=== PATIENT | male | born 1945 | race Caucasian/White ===

== ENCOUNTER 2017-09-16 19:25 | Emergency (ER) | payer MEDICARE, OTHER ==
[~2017-09-16] VITALS: Ht 175.3 cm; Wt 114.8 kg
[~2017-09-16 19:25] MED LIST: AMLODIPINE10 MG PO; ASPIRIN EC325 MG PO; FENTANYL50 MCG/HR TD; FLUTICASONE50 MCG; HYDROCODONE/ACE1 TAB PO; LANTUS100 MG/ML SC; LASIX 40 MG TAB40 MG PO; LIPITOR40 M1 PO; LISINOPRIL10 MG PO; LYRICA100 MG PO; METFORMIN500 MG PO; METOPROLOL SUCC50 MG PO; MITIGARE0.6 MG PO; NOVOLO1 SC; PANTOPRAZOLE SO40 MG PO; TENORMIN PO; ULTRAM50 M1 PO; VOTRIENT200 MG PO
[2017-09-16 21:16] LABS: URINE BILIRUBIN - DIPSTICK NEGATIVE (NEGATIVE); URINE BLOOD DIPSTICK NEGATIVE (NEGATIVE); URINE COLOR YELLOW; URINE GLUCOSE - DIPSTICK NEGATIVE (NEGATIVE); URINE KETONE NEGATIVE (NEGATIVE); URINE LEUK ESTERASE NEGATIVE (NEGATIVE); URINE NITRITE - DIPSTICK NEGATIVE (Negative); URINE PH 5.5 (4.5-8.0); URINE PROTEIN - DIPSTICK 100 mg/dL (NEG-TRACE); URINE UROBILINOGEN - DIPSTICK 0.2 E.U./dL (0.2)
[2017-09-16 21:33] LABS: URINE CLARITY CLEAR
[2017-09-16 21:42] LABS: URINE MUCUS FEW hpf (NONE-FEW); URINE SQUAMOUS EPITHELIAL CELL FEW EPI/hpf (0-FEW)
[2017-09-16 21:42] LABS: INFLUENZA A NONE DETECTED (NONE DETECT); INFLUENZA B NONE DETECTED (NONE DETECT)
[2017-09-16] MEDS ORDERED: ORPHENADRINE100 MG PO (21:57)
[2017-09-16 22:14] VITALS: BP 166/71
== END 2017-09-16 22:14 | disposition home or self-care (01) ==
LOC: ED 19:25
PROVIDERS: Emergency Medicine
DX: R50.9 Fever, unspecified (principal); M54.2 Cervicalgia; M25.512 Pain in left shoulder; M25.511 Pain in right shoulder; S13.4XXA Sprain of ligaments of cervical spine, initial encounter; W18.09XA Striking against other object with subsequent fall, initial encounter; Y92.009 Unspecified place in unspecified non-institutional (private) residence as the place of occurrence of the external cause; I10 Essential (primary) hypertension; I25.2 Old myocardial infarction; E11.9 Type 2 diabetes mellitus without complications; Z79.4 Long term (current) use of insulin

== ENCOUNTER 2018-07-26 22:14 | Emergency (ER) | payer MEDICARE, OTHER ==
[~2018-07-26] VITALS: Ht 180.3 cm; Wt 113.6 kg
[~2018-07-26 22:14] MED LIST changes: -ASPIRIN 8181 MG PO; -CEPHALEXIN500 M1 PO
[2018-07-27 01:16] LABS: CREATININE 2.3 mg/dL (0.7-1.3)
[2018-07-27 01:21] LABS: POTASSIUM 5.4 mmol/l (3.5-5.1)
[2018-07-27 01:45] VITALS: BP 152/71
== END 2018-07-27 02:00 | disposition home or self-care (01) ==
LOC: ED 22:14
PROVIDERS: Family Medicine
DX: E87.5 Hyperkalemia (principal); T44.5X5A Adverse effect of predominantly beta-adrenoreceptor agonists, initial encounter; N17.9 Acute kidney failure, unspecified; I13.0 Hypertensive heart and chronic kidney disease with heart failure and stage 1 through stage 4 chronic kidney disease, or unspecified chronic kidney disease; E11.22 Type 2 diabetes mellitus with diabetic chronic kidney disease; N18.9 Chronic kidney disease, unspecified; I50.9 Heart failure, unspecified; E11.40 Type 2 diabetes mellitus with diabetic neuropathy, unspecified; I25.2 Old myocardial infarction; G47.30 Sleep apnea, unspecified; Z95.1 Presence of aortocoronary bypass graft; E11.65 Type 2 diabetes mellitus with hyperglycemia; Z79.4 Long term (current) use of insulin; R42 Dizziness and giddiness; I10 Essential (primary) hypertension

== ENCOUNTER → 2018-07-26 | Outpatient (REF) | payer MEDICARE, OTHER ==
[~2018-07-26] MED LIST changes: +ANTI-DIARRHE2 M1 PO; +ASPIRIN 8181 MG PO; +CEPHALEXIN500 M1 PO; +FLUTICASONE0.05 % EX; +HYDRALAZINE25 MG PO; -LANTUS100 MG/ML SC; +LANTUS100 UNIT/M SC; +LEVOTHYROXIN50 MCG PO; +MAXITROL0.1 % OP; +NITROSTAT0.4 MG SL; +ORPHENADRINE100 MG PO; +PROTOPIC0.1 % EX; +STOOL SOFTE1 PO; +TYLENOL500 MG PO
[2018-07-26 12:25] LABS: HEMATOCRIT 43.3 % (39.0-50.0); HEMOGLOBIN 13.8 g/dl (14.0-18.0); MEAN CELL VOLUME 91.5 fL CALC (80.0-100.0); MEAN CORPUSCULAR HGB 29.2 pG CALC (26.0-32.0); MEAN CORPUSCULAR HGB CONC 31.9 g/L CALC (32.0-36.0); RED BLOOD COUNT 4.73 mill/uL (4.70-6.10); RED CELL DISTRI WIDTH 17.8 % (11.5-15.5)
[2018-07-26 12:50] LABS: ALBUMIN 4.3 g/dL (3.2-5.0); BILIRUBIN, TOTAL 0.6 mg/dL (0.0-1.4); CREATININE 2.5 mg/dL (0.7-1.3); TOTAL PROTEIN 7.6 g/dL (6.3-8.2)
[2018-07-26 13:00] LABS: POTASSIUM 5.6 mmol/l (3.5-5.1)
== END | disposition home or self-care (01) ==
LOC: MRI 11:55
PROVIDERS: ATTEND Nurse Practitioner
DX: R42 Dizziness and giddiness (principal); I10 Essential (primary) hypertension

== ENCOUNTER → 2018-08-06 | Outpatient (REF) | payer MEDICARE, OTHER ==
[~2018-08-06] MED LIST changes: +ASPIRIN 8181 MG PO; +CEPHALEXIN500 M1 PO
[2018-08-06 08:39] LABS: CREATININE 2.2 mg/dL (0.7-1.3); POTASSIUM 4.8 mmol/l (3.5-5.1)
== END | disposition home or self-care (01) ==
LOC: LAB 07:34
PROVIDERS: ATTEND Nurse Practitioner
DX: E86.0 Dehydration (principal)

== ENCOUNTER 2018-09-06 09:08 | Emergency (ER) | payer MEDICARE, OTHER ==
[~2018-09-06] VITALS: Ht 180.3 cm; Wt 100.0 kg
[~2018-09-06 09:08] MED LIST changes: -ASPIRIN 8181 MG PO; -CEPHALEXIN500 M1 PO
[2018-09-06 09:51] LABS: HEMATOCRIT 44.1 % (39.0-50.0); HEMOGLOBIN 13.9 g/dl (14.0-18.0); IMMATURE GRANULOCYTES 0.3 % (0.0-5.0); MEAN CELL VOLUME 92.5 fL CALC (80.0-100.0); MEAN CORPUSCULAR HGB 29.1 pG CALC (26.0-32.0); MEAN CORPUSCULAR HGB CONC 31.5 g/L CALC (32.0-36.0); NEUT# 3.43 thou/uL (1.82-7.42); RED BLOOD COUNT 4.77 mill/uL (4.70-6.10); RED CELL DISTRI WIDTH 18.5 % (11.5-15.5)
[2018-09-06] MEDS ORDERED: ASPIRIN 8181 MG PO (10:00)
[2018-09-06 10:09] LABS: ALBUMIN 4.5 g/dL (3.2-5.0); BILIRUBIN, TOTAL 0.8 mg/dL (0.0-1.4); CREATININE 2.2 mg/dL (0.7-1.3); POTASSIUM 4.9 mmol/l (3.5-5.1); TOTAL PROTEIN 7.8 g/dL (6.3-8.2)
[2018-09-06 12:17] LABS: URINE BILIRUBIN - DIPSTICK NEGATIVE (NEGATIVE); URINE BLOOD DIPSTICK NEGATIVE (NEGATIVE); URINE COLOR YELLOW; URINE GLUCOSE - DIPSTICK NEGATIVE (NEGATIVE); URINE KETONE NEGATIVE (NEGATIVE); URINE LEUK ESTERASE MODERATE (NEGATIVE); URINE NITRITE - DIPSTICK NEGATIVE (Negative); URINE PROTEIN - DIPSTICK TRACE mg/dL (NEG-TRACE); URINE SPECIFIC GRAVITY 1.015; URINE UROBILINOGEN - DIPSTICK 0.2 E.U./dL (0.2)
[2018-09-06 12:50] LABS: URINE BACTERIA RARE hpf; URINE SQUAMOUS EPITHELIAL CELL FEW EPI/hpf (0-FEW); URINE WBC 20-50 WBC/hpf (0-5)
[2018-09-06] MEDS ORDERED: CEPHALEXIN500 M1 PO (13:09)
[2018-09-06 13:18] VITALS: BP 171/72
== END 2018-09-06 13:24 | disposition home or self-care (01) ==
LOC: ED 09:08
PROVIDERS: Family Medicine
DX: R10.12 Left upper quadrant pain (principal); N39.0 Urinary tract infection, site not specified; E11.40 Type 2 diabetes mellitus with diabetic neuropathy, unspecified; I11.0 Hypertensive heart disease with heart failure; I50.9 Heart failure, unspecified; C34.90 Malignant neoplasm of unspecified part of unspecified bronchus or lung; I25.2 Old myocardial infarction; Z79.4 Long term (current) use of insulin

== ENCOUNTER 2019-06-28 | Emergency (ER) | payer MEDICARE, OTHER ==
[~2019-06-28] MED LIST changes: +ASPIRIN 8181 MG PO; +CEPHALEXIN500 M1 PO
[2019-06-28 11:19] LABS: IMMATURE GRANULOCYTES 0.5 % (0.0-5.0); MEAN CELL VOLUME 90.5 fL CALC (80.0-100.0); MEAN CORPUSCULAR HGB 28.3 pG CALC (26.0-32.0); MEAN CORPUSCULAR HGB CONC 31.3 g/L CALC (32.0-36.0); NEUT# 2.1 thou/uL (1.82-7.42); RED BLOOD COUNT 4.2 mill/uL (4.70-6.10); RED CELL DISTRI WIDTH 18.6 % (11.5-15.5)
[2019-06-28 11:23] LABS: HEMOGLOBIN 11.9 g/dl (14.0-18.0)
[2019-06-28 11:33] LABS: BILIRUBIN, TOTAL 0.6 mg/dL (0.0-1.4); CREATININE 1.5 mg/dL (0.7-1.3); POTASSIUM 4.1 mmol/l (3.5-5.1); TOTAL PROTEIN 6.6 g/dL (6.3-8.2)
[2019-06-28 11:51] LABS: ALBUMIN 3.5 g/dL (3.2-5.0)
[2019-06-28] MEDS ORDERED: AMOXICILLIN875 MG PO (12:08)
== END 2019-06-28 13:07 | disposition home or self-care (01) ==
PROVIDERS: Emergency Medicine
DX: L03.115 Cellulitis of right lower limb (principal); S81.801A Unspecified open wound, right lower leg, initial encounter; S91.104A Unspecified open wound of right lesser toe(s) without damage to nail, initial encounter; E11.65 Type 2 diabetes mellitus with hyperglycemia; R60.0 Localized edema; I11.0 Hypertensive heart disease with heart failure; I50.9 Heart failure, unspecified; E11.40 Type 2 diabetes mellitus with diabetic neuropathy, unspecified; I25.2 Old myocardial infarction; Z79.4 Long term (current) use of insulin; Z85.118 Personal history of other malignant neoplasm of bronchus and lung; Z95.1 Presence of aortocoronary bypass graft

== ENCOUNTER 2019-08-02 | Inpatient (IN) | payer MEDICARE ==
[2019-08-01 23:39] LABS: HEMATOCRIT 35.6 % (39.0-50.0); HEMOGLOBIN 11.2 g/dl (14.0-18.0); IMMATURE GRANULOCYTES 0.4 % (0.0-5.0); MEAN CELL VOLUME 90.4 fL CALC (80.0-100.0); MEAN CORPUSCULAR HGB 28.4 pG CALC (26.0-32.0); MEAN CORPUSCULAR HGB CONC 31.5 g/L CALC (32.0-36.0); NEUT# 4.13 thou/uL (1.82-7.42); RED BLOOD COUNT 3.94 mill/uL (4.70-6.10); RED CELL DISTRI WIDTH 20.6 % (11.5-15.5)
[2019-08-02] VITALS (16 sets, daily range): BP systolic 143–195; BP diastolic 58–87
[~2019-08-02] MED LIST changes: +AMOXICILLIN875 MG PO
[2019-08-02 00:04] LABS: BILIRUBIN, TOTAL 0.7 mg/dL (0.0-1.4); CREATININE 1.8 mg/dL (0.7-1.3); POTASSIUM 4.1 mmol/l (3.5-5.1); TOTAL PROTEIN 6.1 g/dL (6.3-8.2)
[2019-08-02] MEDS ORDERED: ASPIRIN81 MG PO (03:07)
[2019-08-02] MEDS ORDERED: NORVASC10 M1 PO (03:07)
[2019-08-02] MEDS ORDERED: LIPITOR40 M1 PO (03:08)
[2019-08-02] MEDS ORDERED: CEPHALEXIN500 MG PO (03:09)
[2019-08-02] MEDS ORDERED: MITIGARE0.6 MG PO (03:11)
[2019-08-02] MEDS ORDERED: CYCLOBENZAPR5 MG PO (03:12)
[2019-08-02] MEDS ORDERED: FLUTICASONE0.05 % EX (03:13)
[2019-08-02] MEDS ORDERED: FUROSEMIDE20 MG PO (03:13)
[2019-08-02] MEDS ORDERED: HYDROCO/APAP1 TA9 PO (03:15)
[2019-08-02] MEDS ORDERED: HYDROCODONE BIT1 TA7 PO (03:15)
[2019-08-02] MEDS ORDERED: FIASP FLEX100 UNIT/M SC (03:16)
[2019-08-02] MEDS ORDERED: BASAGLAR K100 UNIT/M SC (03:17)
[2019-08-02] MEDS ORDERED: LIDOCAINE 5%5 % TOP (03:18)
[2019-08-02] MEDS ORDERED: ANTI-DIARRHE2 M1 PO (03:19)
[2019-08-02] MEDS ORDERED: LEVOTHYROXIN125 MCG PO (03:19)
[2019-08-02] MEDS ORDERED: NEO/POLY/DEX0.13 OD (03:22)
[2019-08-02] MEDS ORDERED: ORPHENADRINE100 MG PO ×2 (03:23→03:37)
[2019-08-02] MEDS ORDERED: NITROGLYCERIN0.4 MG SL (03:23)
[2019-08-02] MEDS ORDERED: PROTONIX40 M2 PO (03:29)
[2019-08-02] MEDS ORDERED: PAZOPANIB PO (03:30)
[2019-08-02] MEDS ORDERED: PREGABALIN50 MG PO (03:31)
[2019-08-02] MEDS ORDERED: LYRICA50 MG PO (03:32)
[2019-08-02] MEDS ORDERED: PROTOPIC0.1 % TOP (03:33)
[2019-08-02] MEDS ORDERED: TYLENOL500 MG PO (03:34)
[2019-08-02] MEDS ORDERED: LISINOPRIL10 MG PO (03:36)
[2019-08-02] MEDS ORDERED: METOPROLOL SUCC50 MG PO (03:37)
[2019-08-02 04:53] LABS: HEMATOCRIT 37.1 % (39.0-50.0); HEMOGLOBIN 11.6 g/dl (14.0-18.0); IMMATURE GRANULOCYTES 0.2 % (0.0-5.0); MEAN CELL VOLUME 91.4 fL CALC (80.0-100.0); MEAN CORPUSCULAR HGB 28.6 pG CALC (26.0-32.0); MEAN CORPUSCULAR HGB CONC 31.3 g/L CALC (32.0-36.0); NEUT# 4.07 thou/uL (1.82-7.42); RED BLOOD COUNT 4.06 mill/uL (4.70-6.10); RED CELL DISTRI WIDTH 20.6 % (11.5-15.5)
[2019-08-02 05:07] LABS: CREATININE 1.7 mg/dL (0.7-1.3); POTASSIUM 4.1 mmol/l (3.5-5.1)
[2019-08-02 07:30] LABS: URINE BILIRUBIN - DIPSTICK NEGATIVE (NEGATIVE); URINE BLOOD DIPSTICK TRACE-INTACT (NEGATIVE); URINE COLOR YELLOW; URINE GLUCOSE - DIPSTICK NEGATIVE (NEGATIVE); URINE KETONE NEGATIVE (NEGATIVE); URINE NITRITE - DIPSTICK NEGATIVE (Negative); URINE PH 5.5 (4.5-8.0); URINE PROTEIN - DIPSTICK 100 mg/dL (NEG-TRACE); URINE UROBILINOGEN - DIPSTICK 0.2 E.U./dL (0.2)
[2019-08-02 07:32] LABS: URINE LEUK ESTERASE SMALL (NEGATIVE)
[2019-08-02 08:05] LABS: URINE RBC 0-2 RBC/hpf (0-5)
[2019-08-02 08:06] LABS: URINE BACTERIA FEW hpf
[2019-08-02 10:32] LABS: ACT PARTIAL THROMBO TIME 29.9 SECONDS (20.0-32.5); PROTHROMBIN TIME 10.5 SECONDS (9.0-12.5)
== END 2019-08-02 15:08 | disposition short-term general hospital (02) | DRG 292 ==
PROVIDERS: Emergency Medicine; Nurse Practitioner Family; ADMIT Internal Medicine
DX: I13.0 Hypertensive heart and chronic kidney disease with heart failure and stage 1 through stage 4 chronic kidney disease, or unspecified chronic kidney disease (principal); C34.90 Malignant neoplasm of unspecified part of unspecified bronchus or lung; N18.4 Chronic kidney disease, stage 4 (severe); L03.116 Cellulitis of left lower limb; L03.115 Cellulitis of right lower limb; J44.0 Chronic obstructive pulmonary disease with (acute) lower respiratory infection; I50.9 Heart failure, unspecified; J20.9 Acute bronchitis, unspecified; I25.10 Atherosclerotic heart disease of native coronary artery without angina pectoris; E11.22 Type 2 diabetes mellitus with diabetic chronic kidney disease; E11.51 Type 2 diabetes mellitus with diabetic peripheral angiopathy without gangrene; R79.89 Other specified abnormal findings of blood chemistry; E11.65 Type 2 diabetes mellitus with hyperglycemia; I25.2 Old myocardial infarction; E03.9 Hypothyroidism, unspecified; G89.4 Chronic pain syndrome; G47.33 Obstructive sleep apnea (adult) (pediatric); E78.5 Hyperlipidemia, unspecified; E11.610 Type 2 diabetes mellitus with diabetic neuropathic arthropathy; E66.9 Obesity, unspecified; Z68.36 Body mass index [BMI] 36.0-36.9, adult; Z87.891 Personal history of nicotine dependence; Z79.899 Other long term (current) drug therapy; Z85.528 Personal history of other malignant neoplasm of kidney; Z95.1 Presence of aortocoronary bypass graft; Z95.5 Presence of coronary angioplasty implant and graft; Z90.5 Acquired absence of kidney; Z79.4 Long term (current) use of insulin
CPT/HCPCS: J1644